=== PATIENT | female | born 1955 ===

== ENCOUNTER 2023-06-13 06:45 | Day surgery (SDC) | payer MEDICARE, OTHER, SELFPAY ==
--- NOTE | 2023-06-13 06:17 | W.ANESPRE ---
General Info Date of Service Date Performed: 06/13/23 Height: 5 ft 1.5 in Weight: 77 kg Body Mass Index (BMI): 31.5 Surgical Procedure: Operation Date: 06/13/23 08:25 Proposed Procedure Side Surgeon p Cataract Extraction with IOL Implant Right Osman Jolley MD Meds Allergies and Home Medications Allergies Allergy/AdvReac Type Severity Reaction Status Date / Time No Known Allergies Allergy Unverified 06/10/23 13:57 Home Medication Medication Instructions Recorded albuterol sulfate 90 mcg/actuation 2 inh inhalation QID PRN 06/10/23 aerosol inhaler (Proventil HFA) alprazolam 0.5 mg tablet 0.5 mg PO HS PRN 06/10/23 amoxicillin 875 mg-potassium 1 tab PO BID 06/10/23 clavulanate 125 mg tablet benzonatate 200 mg capsule 200 mg PO TID PRN 06/10/23 cholecalciferol (vitamin D3) 100 100 mcg PO DAILY 06/10/23 mcg (4,000 unit) capsule citalopram 20 mg tablet 20 mg PO DAILY 06/10/23 ezetimibe 10 mg tablet 10 mg PO DAILY 06/10/23 fluticasone propionate 50 1 spray intranasal DAILY 06/10/23 mcg/actuation nasal spray,suspension (Aller-Wilmer) lisinopril 20 1 tab PO DAILY 06/10/23 mg-hydrochlorothiazide 12.5 mg tablet ropinirole 0.25 mg tablet 0.5 mg PO HS 06/10/23 rosuvastatin 40 mg tablet 40 mg PO DAILY 06/10/23 sumatriptan 5 mg/actuation nasal 5 mg intranasal PRN 06/10/23 spray (Imitrex) trihexyphenidyl 2 mg tablet 2 mg PO TID 06/10/23 Current Visit Medications: Current Medications Generic Name Dose Route Start Last Admin Trade Name Freq PRN Reason Stop Dose Admin Acetaminophen 1,000 mg 06/13/23 06:00 Acetaminophen 500 Mg Tab PO 07/13/23 05:59 Q4H PRN PRN Balanced Salt Solution 500 ml 06/13/23 06:00 Balanced Salt Soln.-Plus 500 Ml Bag OP 07/13/23 05:59 DIRECTED EDUARDO Miscellaneous Medication 0 ml 06/13/23 06:00 Tropicam./Phenyleph. (1/2.5%) 5 Ml Btl OD 07/13/23 05:59 DIRECTED [facility] Miscellaneous Medication 0 ml 06/13/23 06:00 Prednisolone 1%, Moxifloxacin 0.5%, Bromfenac 0.09% 5ml Btl OD 07/13/23 05:59 DIRECTED [facility] Tetracaine HCl 0 ml 06/13/23 06:00 Tetracaine 0.5% 4 Ml Btl OD 07/13/23 05:59 DIRECTED [facility] PFSH Active Problems Active Problems: Problem Status Onset Code Posterior subcapsular age-related cataract, right eye H25.041 Nuclear age-related cataract, right eye H25.11 Medical History Medical History (Updated 06/12/23 @ 18:58 by Osman Jolley MD) Dystonia Tremor, neuro 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 Medical History Comments:: Per per patient DBS neurosurgery stimulator implant in right breast. Surgical History Surgical History (Updated 06/10/23 @ 13:51 by Meche Go RN) History of esophagogastroduodenoscopy (EGD) History of surgery Neurostimulator implantation Vulvar abscess I & D History of colonoscopy History of bunionectomy Tobacco Smoking/Tobacco Use Status: Former Tobacco Use Alcohol Alcohol Intake: current Alcohol intake frequency: 0-2 drinks per day Alcohol type: wine Substance Use Substance use: Current Sobriety Substance use type: does not use and marijuana Vital Signs and Lab Results Vital Signs Most Recent Vital Signs in EMR: Temp Pulse Resp BP Pulse Ox 36.6 C 72 16 127/73 96 06/13/23 07:03 06/13/23 07:03 06/13/23 07:03 06/13/23 07:03 06/13/23 07:03 Lab Results Blood Type / Crossmatch: No Data to Display Complete Blood Count: No Data to Display Complete Metabolic Panel: No Data to Display Liver Function Panel: No Data to Display Coagulation Panel: No Data to Display Cardiac Panel: No Data to Display Arterial Blood Gas: No Data to Display Venous Blood Gas: No Data to Display Pancreas Panel: No Data to Display Thyroid Panel: No Data to Display Infectious Disease: No Data to Display Blood Cultures: No Data to Display Toxicology Panel: No Data to Display Anesthesia Assessment and Plan Anesthesia History Personal History: No History of Anesthesia Complications Family History: No Family History of Anesthesia Complications Exercise Tolerance Exercise Tolerance: Metabolic Equivalents>4 Cardiac & Pulmonary Exam Cardiac Exam: Normal S1/S2 Heart Sounds Pulmonary Exam: Clear Bilateral Breath Sounds Implantable Cardiac Device Does patient have a Pacemaker or an ICD?: No Airway Exam Known Difficult Airway: No Mallampati Class: 3 Mouth Opening: Narrow (< 3cm) Thyromental Distance: Greater than 3 cm Neck Range of Motion: Full ROM Neck Circumference: Normal Teeth Condition: Normal Dentition ASA Classification ASA Score: ASA 2 Emergency Case?: No NPO Status NPO Status: NPO Clears >2 hours, Solids >8 hours Anesthesia Plan Resuscitation Status: Full Code Anesthesia Technique: MAC Anesthesia Airway Planned: Natural Airway Monitors Used: Standard Monitors Preoperative Comments:: 68 yo female for cataract removal. Would like MKO. Sig PMHX: HTN (lisinopril/HCTZ), asthma/RAD (albuterol) tremor with neurostim (trihexyphenidyl), preDM, anxiety (alprazolam), former smoker, occ EtOH/cannabis.
[2023-06-13 07:03] VITALS: BP 127/73; PULSE 72; RESP 16; TEMP 36.6; O2SAT 96
[2023-06-13] MEDS: Tropicam./Phenyleph. (1/2.5%) 5 ML BTL OD ×3 (07:22→07:35)
[2023-06-13 07:37] VITALS: BMI 31.5
[2023-06-13] MEDS: Tetracaine 0.5% 4 ML BTL OD (08:32)
[2023-06-13] MEDS: Povidone-Iodine Ophth 30 ML BTL (08:33)
[2023-06-13] MEDS: Duovisc Viscoelastic System EACH 1 EACH (08:38)
[2023-06-13] MEDS: Balanced Salt Soln.-PLUS 500 ML BAG OP (08:38)
[2023-06-13] MEDS: Phenylephrine/Lidocaine (15/10) MG/ML 1 ML VIAL (08:39)
[2023-06-13] MEDS: Lidocaine 1% Pres-Free 5 ML VIAL (08:39)
[2023-06-13 09:00] VITALS: BP 111/71; PULSE 73; RESP 16; TEMP 36.6; O2SAT 100
--- NOTE | 2023-06-13 09:01 | ROE_ITS ---
Date of service: 06/13/23 Time of Service: 09:02 Operative Note Operative Note DATE OF PROCEDURE: 06/13/23 PRE-OP DIAGNOSIS: Nuclear/posterior subcapsular cataract, right eye POST-OP DIAGNOSIS: same PROCEDURE: Cataract extraction using phacoemulsification with intraocular lens implant, right eye SURGEON: Osman Jolley ANESTHESIA TYPE: Local By Surgeon and MAC Refer to Anesthesia Record ESTIMATED BLOOD LOSS: 0 PATHOLOGY: none sent COMPLICATIONS: None Patient was transported to: same day Patient's condition: stable Implants: Ron & Ron Tecnis Eyhance [id number] Indications: Progressive visual loss due to cataract, right eye Procedure Description: CATARACT SURGERY OPERATIVE REPORT PREOPERATIVE DIAGNOSIS: 1. Nuclear/posterior subcapsular cataract, right eye POSTOPERATIVE DIAGNOSIS: Same OPERATION: 1. Cataract extraction using phacoemulsification with posterior chamber intraocular lens implant, right eye. IOL: IOL Central Processing Technician/Model: Ron & Ron Tecnis Eyhance DIB00 IOL Power: + 20.5 diopters IOL Serial Number: [id number] Optic Diameter: 6.0mm Haptic/Overall Diameter: 13.0mm PHACO INFO: Roscoe AlertEnterpriseurion Vision System with OZil and Active Fluidics Cumulative Dispersed Energy (CDE): 11.10 seconds SURGEON: Osman Jolley MD, GAVINO ANESTHESIA: Monitored Anesthesia Care (MAC), with local sub-tenon's anesthetic infiltration COMPLICATIONS: None SPECIMENS: None INDICATIONS FOR PROCEDURE: The patient is a 68-year-old lady who is undergone previously myopic LASIK, monovision, right eye distance. She has developed a significant nuclear/posterior subcapsular cataract in the right eye and desires cataract surgery and attempt to improve and maximize her vision. The option of cataract surgery was offered to the patient and she wished to proceed. See office notes for detailed information. PROCEDURE: The correct surgical eye was identified and marked as the right eye and the pupil was dilated in the preoperative area using mydriatics and cycloplegics. The dilated pupil size was 8.0 mm. Oral sedation was administered in the form of an Imprimis MKO Melt (midazolam 3mg/ketamine 25mg/ondansetron 2mg). The patient was brought to the operating room where cardiopulmonary monitoring was instituted and surgical time-out was performed, confirming the correct operative eye and IOL power. Topical anesthesia was administered and ophthalmic povidone-iodine 5% was instilled into the conjunctival fornices. The gerard-ocular area was prepped with Betadine 10% solution and draped in the usual sterile fashion for intraocular surgery, including an aperture drape. A Tegaderm transparent film dressing was cut in half and used to cover the lashes and lid margins. Care was taken to sequester the lashes and lid margins under the Tegaderm dressing. A lid speculum was placed between the lids of the operative eye and the Roscoe LuxOR Revalia operating microscope was maneuvered into position. Sammy scissors were then used to make a conjunctival buttonhole approximately 6mm posterior to the limbus in the inferonasal quadrant. Blunt dissection was carried out to expose bare sclera, and a blunt-tipped sub-tenon?s anesthesia cannula was introduced and passed posteriorly along the globe where non- preserved plain lidocaine was injected into posterior sub-Tenon?s space. A sideport knife was used to make a paracentesis port. Intraocular phenylephrine/lidocaine was injected into the anterior chamber. The anterior chamber was filled with viscoelastic. A keratome knife was used to construct a 2-plane clear corneal tunnel extending 2.0mm into clear cornea. A flap was raised on the anterior capsule and capsulorhexis forceps were used to complete a continuous curvilinear capsulorhexis of 5.5 mm. Balanced salt solution was then used to perform cortical cleaving hydrodissection and nuclear hydrodelineation until the lens could be freely rotated within the capsular bag. The lens nucleus was then disassembled and removed within the capsular bag and iris plane using phacoemulsification. Residual cortical material was removed using the I/A handpiece. The posterior capsule was carefully polished to remove as much residual lens epithelial cells as safely possible. The capsular bag was then inflated and the anterior chamber deepened with cohesive viscoelastic. The lens implant described above was inserted into the capsular bag using the Ron and Susan Simplicity pre- loaded injector. A Kuglen hook was used to dial the IOL into position. Residual viscoelastic was then removed first from posterior to the IOL, then from the anterior chamber using the I/A handpiece. The lens implant was noted to center nicely within the capsular bag. The incisions were stromally hydrated, and the anterior chamber was reformed using BSS. Then 0.5cc of moxifloxacin 1.0mg/ml were injected into the capsular bag and anterior chamber. The incisions were checked with a Weck spear and found to be secure. Several drops of ophthalmic povidone-iodine 5% were then applied to the eye followed by two drops of Imprimis combination prednisolone/moxifloxacin/nepafenac solution. The drapes were removed and a clear plastic protective eye shield was placed over the eye. The patient was then returned to Same Day Surgery in stable condition.
--- NOTE | 2023-06-13 09:01 | W.PM.DSUDISC ---
Date of service: 06/13/23 Time of Service: 09:01 Discharge Plan Disposition Patient Disposition: Home Discharge Details Attending Provider: Osman Jolley Primary Care Provider: Arely Che Home Meds and New Rx's Prescriptions: No Action lisinopril-hydrochlorothiazide 20-12.5 mg tablet 1 tab PO DAILY Patient Comments: TAKE 1 TABLET BY MOUTH EVERY DAY alprazolam 0.5 mg tablet 0.5 mg PO HS PRN Patient Comments: TAKE 1 TABLET BY MOUTH EVERY DAY NEEDED FOR TREMORS citalopram 20 mg tablet 20 mg PO DAILY Patient Comments: TAKE 1 TABLET BY MOUTH EVERY DAY ropinirole 0.25 mg tablet 0.5 mg PO HS Patient Comments: TAKE 1 TABLET BY MOUTH AT BEDTIME FOR RESTLESS LEGS ezetimibe 10 mg tablet 10 mg PO DAILY Patient Comments: TAKE 1 TABLET BY MOUTH EVERY DAY rosuvastatin 40 mg tablet 40 mg PO DAILY Patient Comments: TAKE 1 TABLET BY MOUTH EVERY DAY sumatriptan [Imitrex] 5 mg/actuation spray,non-aerosol 5 mg intranasal PRN Rx Instructions: administer into one nostril as a single dose fluticasone propionate [Aller-Wilmer] 50 mcg/actuation spray,suspension 1 spray intranasal DAILY Hold Instructions: Pt Stopped/Never Started Rx Instructions: administer into each nostril cholecalciferol (vitamin D3) 100 mcg (4,000 unit) capsule 100 mcg PO DAILY albuterol sulfate [Proventil HFA] 90 mcg/actuation HFA aerosol inhaler 2 inh inhalation QID PRN trihexyphenidyl 2 mg tablet 2 mg PO TID Rx Instructions: give with food (meal/snack) amoxicillin-pot clavulanate 875-125 mg tablet 1 tab PO BID Patient Comments: For URI, sinusitis take twice daily for 10 days benzonatate 200 mg capsule 200 mg PO TID PRN Discharge Instructions Stand Alone Forms: Post-op Topical Cataract, Gus Vizcarra (DSU) Discharge Orders Discharge Orders: Discharge Order (Routine); Ordered 06/13/23 Ordered By: Osman Jolley DS: Diagnosis Discharge Diagnosis (1) Posterior subcapsular age-related cataract, right eye: Status: Resolved (2) Nuclear age-related cataract, right eye: Status: Resolved
--- NOTE | 2023-06-13 09:15 | W.ANESPOSTOP ---
Postoperative Evaluation Date, Time and Location Date Performed: 06/13/23 Time Performed: 09:15 Patient Location: Day Surgery Unit Vital Signs Most Recent Imported Vital Signs: Most Recent Vital Signs Temp Pulse Resp BP Pulse Ox 36.6 C 73 16 111/71 100 06/13/23 09:00 06/13/23 09:00 06/13/23 09:00 06/13/23 09:00 06/13/23 09:00 Pain Score Most Recent Pain Score: Most Recent Pain Score Pain Level 0 06/13/23 09:00 Assessment Mental Status: Awake (Alert & Oriented to Patient Baseline) Airway and Respiratory Function: Patent airway with normal (patient baseline) respiratory exam Cardiovascular Function: Hemodynamically Stable Hydration Status: Adequately Hydrated Nausea & Vomiting: No Nausea or Vomiting Pain: Pt. Denies Any Pain Peripheral Nerve Block: Patient did not receive a nerve block
[2023-06-13 09:28] VITALS: BP 129/74; PULSE 76; RESP 16; TEMP 36.5; O2SAT 95
== END 2023-06-13 09:32 | disposition home or self-care (01) ==
PROVIDERS: PCP Nurse Practitioner Family; Visit Provider Ophthalmology
PROC: (CPT 66984; principal; 2023-06-13 08:15)
DX: H25.041 Posterior subcapsular polar age-related cataract, right eye (principal); H25.11 Age-related nuclear cataract, right eye
CPT/HCPCS: 66984; 00123; V2632

== ENCOUNTER 2023-06-27 06:52 | Day surgery (SDC) | payer MEDICARE, OTHER, SELFPAY ==
[2023-06-27] MEDS: Tropicam./Phenyleph. (1/2.5%) 5 ML BTL OS ×3 (07:12→07:27)
[2023-06-27 07:22] VITALS: BP 124/67; PULSE 74; RESP 16; TEMP 36.4; O2SAT 97
[2023-06-27] MEDS: Midazolam/Ketamine/Ondansetron (3/25/2MG) 1 TAB 1 EACH SL (07:30)
[2023-06-27 07:34] VITALS: BMI 31.7
--- NOTE | 2023-06-27 07:34 | W.ANESPRE ---
General Info Date of Service Date Performed: 06/27/23 Height: 5 ft 1.5 in Weight: 77.4 kg Body Mass Index (BMI): 31.7 Surgical Procedure: Operation Date: 06/27/23 08:25 Proposed Procedure Side Surgeon p Cataract Extraction with IOL Implant Left Osman Jolley MD Meds Allergies and Home Medications Allergies Allergy/AdvReac Type Severity Reaction Status Date / Time No Known Allergies Allergy Unverified 06/27/23 07:04 Home Medication Medication Instructions Recorded albuterol sulfate 90 mcg/actuation 2 inh inhalation QID PRN 06/10/23 aerosol inhaler (Proventil HFA) alprazolam 0.5 mg tablet 0.5 mg PO HS PRN 06/10/23 benzonatate 200 mg capsule 200 mg PO TID PRN 06/10/23 cholecalciferol (vitamin D3) 100 100 mcg PO DAILY 06/10/23 mcg (4,000 unit) capsule citalopram 20 mg tablet 20 mg PO DAILY 06/10/23 ezetimibe 10 mg tablet 10 mg PO DAILY 06/10/23 fluticasone propionate 50 1 spray intranasal DAILY 06/10/23 mcg/actuation nasal spray,suspension (Aller-Wilmer) lisinopril 20 1 tab PO DAILY 06/10/23 mg-hydrochlorothiazide 12.5 mg tablet ropinirole 0.25 mg tablet 0.5 mg PO HS 06/10/23 rosuvastatin 40 mg tablet 40 mg PO DAILY 06/10/23 sumatriptan 5 mg/actuation nasal 5 mg intranasal PRN 06/10/23 spray (Imitrex) trihexyphenidyl 2 mg tablet 2 mg PO TID 06/10/23 Current Visit Medications: Current Medications Generic Name Dose Route Start Last Admin Trade Name Freq PRN Reason Stop Dose Admin Acetaminophen 1,000 mg 06/27/23 06:00 Acetaminophen 500 Mg Tab PO 07/27/23 05:59 Q4H PRN PRN Balanced Salt Solution 500 ml 06/27/23 06:00 Balanced Salt Soln.-Plus 500 Ml Bag OP 07/27/23 05:59 DIRECTED EDUARDO Miscellaneous Medication 0 ml 06/27/23 06:00 06/27/23 07:27 Tropicam./Phenyleph. (1/2.5%) 5 Ml Btl OS 07/27/23 05:59 1 drp DIRECTED EDUARDO Administration Miscellaneous Medication 0 ml 06/27/23 06:00 Prednisolone 1%, Moxifloxacin 0.5%, Bromfenac 0.09% 5ml Btl OS 07/27/23 05:59 DIRECTED EDUARDO Tetracaine HCl 0 ml 06/27/23 06:00 Tetracaine 0.5% 4 Ml Btl OS 07/27/23 05:59 DIRECTED EDUARDO PFSH Active Problems Active Problems: Problem Status Onset Code Posterior subcapsular age-related cataract of left eye H25.042 Nuclear age-related cataract, left eye H25.12 Posterior subcapsular age-related cataract, right eye H25.041 Nuclear age-related cataract, right eye H25.11 Medical History Medical History Dystonia Tremor, neuro 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 Medical History Comments:: Per per patient DBS neurosurgery stimulator implant in right breast. Surgical History Surgical History History of esophagogastroduodenoscopy (EGD) History of surgery Neurostimulator implantation Vulvar abscess I & D History of colonoscopy History of bunionectomy Tobacco Smoking/Tobacco Use Status: Former Tobacco Use Alcohol Alcohol Intake: current Alcohol intake frequency: 0-2 drinks per day Alcohol type: wine Substance Use Substance use: Current Sobriety Substance use type: does not use and marijuana Vital Signs and Lab Results Vital Signs Most Recent Vital Signs in EMR: Most Recent Vital Signs Temp Pulse Resp BP Pulse Ox 36.4 C L 74 16 124/67 97 06/27/23 07:22 06/27/23 07:22 06/27/23 07:22 06/27/23 07:22 06/27/23 07:22 Lab Results Blood Type / Crossmatch: No Data to Display Complete Blood Count: No Data to Display Complete Metabolic Panel: No Data to Display Liver Function Panel: No Data to Display Coagulation Panel: No Data to Display Cardiac Panel: No Data to Display Arterial Blood Gas: No Data to Display Venous Blood Gas: No Data to Display Pancreas Panel: No Data to Display Thyroid Panel: No Data to Display Infectious Disease: No Data to Display Blood Cultures: No Data to Display Toxicology Panel: No Data to Display Anesthesia Assessment and Plan Anesthesia History Personal History: No History of Anesthesia Complications Family History: No Family History of Anesthesia Complications Exercise Tolerance Exercise Tolerance: Metabolic Equivalents>4 Pertinent Negatives Pertinent Negatives: No Symptoms of GERD Cardiac & Pulmonary Exam Cardiac Exam: Normal S1/S2 Heart Sounds Pulmonary Exam: Clear Bilateral Breath Sounds Implantable Cardiac Device Does patient have a Pacemaker or an ICD?: No Airway Exam Known Difficult Airway: No Mallampati Class: 3 Mouth Opening: Narrow (< 3cm) Thyromental Distance: Greater than 3 cm Neck Range of Motion: Full ROM Neck Circumference: Normal Teeth Condition: Normal Dentition ASA Classification ASA Score: ASA 3 Emergency Case?: No NPO Status NPO Status: NPO Clears >2 hours, Solids >8 hours Anesthesia Plan Resuscitation Status: Full Code Anesthesia Technique: MAC Anesthesia Airway Planned: Natural Airway Monitors Used: Standard Monitors
[2023-06-27] MEDS: Povidone-Iodine Ophth 30 ML BTL (08:13)
[2023-06-27] MEDS: Tetracaine 0.5% 4 ML BTL OS (08:13)
[2023-06-27] MEDS: Duovisc Viscoelastic System EACH 1 EACH (08:19)
[2023-06-27] MEDS: Balanced Salt Soln.-PLUS 500 ML BAG OP (08:20)
[2023-06-27] MEDS: Lidocaine 1% Pres-Free 5 ML VIAL (08:20)
--- NOTE | 2023-06-27 08:38 | ROE_ITS ---
Date of service: 06/27/23 Time of Service: 08:38 Operative Note Operative Note DATE OF PROCEDURE: 06/27/23 PRE-OP DIAGNOSIS: Nuclear/posterior subcapsular cataract, left eye Status post myopic LASIK, left eye POST-OP DIAGNOSIS: same PROCEDURE: Cataract extraction using phacoemulsification with intraocular lens implant, left eye SURGEON: Osman Jolley ANESTHESIA TYPE: Local By Surgeon and MAC Refer to Anesthesia Record PATHOLOGY: none sent COMPLICATIONS: None Patient was transported to: same day Patient's condition: stable Implants: Ron and Ron Tecnis Eyhance DIB00 Indications: Progressive decreased vision due to cataract, left eye Procedure Description: CATARACT SURGERY OPERATIVE REPORT PREOPERATIVE DIAGNOSIS: 1. Nuclear/posterior subcapsular cataract, left eye 2. Status post myopic LASIK, left eye POSTOPERATIVE DIAGNOSIS: Same OPERATION: 1. Cataract extraction using phacoemulsification with posterior chamber intraocular lens implant, left eye. IOL: IOL Supervisor Toy Assembly/Model: Ron & Ron Tecnis Eyhance DIB00 IOL Power: + 19.5 diopters IOL Serial Number: [id number] Optic Diameter: 6.0 mm Haptic/Overall Diameter: 13.0 mm PHACO INFO: Roscoe Spicy Horse Gamesurion Vision System with OZil and Active Fluidics Cumulative Dispersed Energy (CDE): 8.18 seconds SURGEON: Osman Jolley MD, GAVINO ANESTHESIA: Monitored A [facility] (MAC), with local sub-tenon's anesthetic infiltration COMPLICATIONS: None SPECIMENS: None INDICATIONS FOR PROCEDURE: The patient is a 68-year-old lady was previously undergone myopic LASIK with monovision, left eye near. She has developed symptomatic bilateral nuclear /posterior subcapsular cataract. She has already undergone cataract surgery in the right eye, and is doing well postoperatively. She now presents for cataract surgery in the left eye. She desires correction for best distance visual acuity in both eyes. See office notes for detailed information. PROCEDURE: The correct surgical eye was identified and marked as the left eye and the pupil was dilated in the preoperative area using mydriatics and cycloplegics. The dilated pupil size was 7.0 mm. Oral sedation was administered in the form of an Imprimis MKO Melt (midazolam 3mg/ketamine 25mg/ondansetron 2mg).. The patient was brought to the operating room where cardiopulmonary monitoring was instituted and surgical time-out was performed, confirming the correct operative eye and IOL power. Topical anesthesia was administered and ophthalmic povidone-iodine 5% was instilled into the conjunctival fornices. The gerard-ocular area was prepped with Betadine 10% solution and draped in the usual sterile fashion for intraocular surgery, including an aperture drape. A Tegaderm transparent film dressing was cut in half and used to cover the lashes and lid margins. Care was taken to sequester the lashes and lid margins under the Tegaderm dressing. A lid speculum was placed between the lids of the operative eye and the Roscoe LuxOR Revalia operating microscope was maneuvered into position. Sammy scissors were then used to make a conjunctival buttonhole approximately 6mm posterior to the limbus in the inferonasal quadrant. Blunt dissection was carried out to expose bare sclera, and a blunt-tipped sub-tenon?s anesthesia cannula was introduced and passed posteriorly along the globe where non- preserved plain lidocaine was injected into posterior sub-Tenon?s space. A sideport knife was used to make a paracentesis port. Intraocular phenylephrine/lidocaine was injected into the anterior chamber.. The anterior chamber was filled with viscoelastic. A keratome knife was used to construct a 2-plane near-clear corneal tunnel extending 2.0mm into clear cornea. A flap was raised on the anterior capsule and capsulorhexis forceps were used to complete a continuous curvilinear capsulorhexis of 5.5 mm. Balanced salt solution was then used to perform cortical cleaving hydrodissection and nuclear hydrodelineation until the lens could be freely rotated within the capsular bag. The lens nucleus was then disassembled and removed within the capsular bag and iris plane using phacoemulsification. Residual cortical material was removed using the irrigation/aspiration handpiece. The posterior capsule was carefully polished to remove as much residual lens epithelial cells as safely possible. The capsular bag was then inflated and the anterior chamber deepened with viscoelastic. The lens implant described above was inserted into the capsular bag using the Ron and Ron Simplicity pre-loaded injector. A Kuglen hook was used to dial the IOL into position. Residual viscoelastic was then removed first from posterior to the IOL, then from the anterior chamber using the I/A handpiece. The lens implant was noted to center nicely within the capsular bag. The incisions were stromally hydrated, and the anterior chamber was reformed using BSS. Then 0.5cc of moxifloxacin 1.0mg/ml were injected into the capsular bag and anterior chamber. The in cisions were checked with a Weck spear and found to be secure. Several drops of ophthalmic povidone-iodine 5% were then applied to the eye followed by two drops of Imprimis combination prednisolone/moxifloxacin/nepafenac solution. The drapes were removed and a clear plastic protective eye shield was placed over the eye. The patient was then returned to Same Day Surgery in stable condition.
--- NOTE | 2023-06-27 08:38 | W.PM.DSUDISC ---
Date of service: 06/27/23 Time of Service: 08:38 Discharge Plan Disposition Patient Disposition: Home Discharge Details Attending Provider: Osman Jolley Primary Care Provider: Arely Che Home Meds and New Rx's Prescriptions: No Action lisinopril-hydrochlorothiazide 20-12.5 mg tablet 1 tab PO DAILY Patient Comments: TAKE 1 TABLET BY MOUTH EVERY DAY alprazolam 0.5 mg tablet 0.5 mg PO HS PRN Patient Comments: TAKE 1 TABLET BY MOUTH EVERY DAY NEEDED FOR TREMORS citalopram 20 mg tablet 20 mg PO DAILY Patient Comments: TAKE 1 TABLET BY MOUTH EVERY DAY ropinirole 0.25 mg tablet 0.5 mg PO HS Patient Comments: TAKE 1 TABLET BY MOUTH AT BEDTIME FOR RESTLESS LEGS ezetimibe 10 mg tablet 10 mg PO DAILY Patient Comments: TAKE 1 TABLET BY MOUTH EVERY DAY rosuvastatin 40 mg tablet 40 mg PO DAILY Patient Comments: TAKE 1 TABLET BY MOUTH EVERY DAY sumatriptan [Imitrex] 5 mg/actuation spray,non-aerosol 5 mg intranasal PRN Rx Instructions: administer into one nostril as a single dose fluticasone propionate [Aller-Wilmer] 50 mcg/actuation spray,suspension 1 spray intranasal DAILY Hold Instructions: Pt Stopped/Never Started Rx Instructions: administer into each nostril cholecalciferol (vitamin D3) 100 mcg (4,000 unit) capsule 100 mcg PO DAILY albuterol sulfate [Proventil HFA] 90 mcg/actuation HFA aerosol inhaler 2 inh inhalation QID PRN trihexyphenidyl 2 mg tablet 2 mg PO TID Rx Instructions: give with food (meal/snack) benzonatate 200 mg capsule 200 mg PO TID PRN Discharge Instructions Stand Alone Forms: Post-op Topical Cataract, [facility]izcar[facility] ([facility]) Discharge Orders Discharge Orders: Discharge Order (Routine); Ordered 06/27/23 Ordered By: Osman Jolley DS: Diagnosis Discharge Diagnosis (1) Posterior subcapsular age-related cataract of left eye: Status: Resolved (2) Nuclear age-related cataract, left eye: Status: Resolved
[2023-06-27 08:42] VITALS: BP 110/76; PULSE 75; RESP 16; TEMP 36.5; O2SAT 97
--- NOTE | 2023-06-27 08:48 | W.ANESPOSTOP ---
Postoperative Evaluation Date, Time and Location Date Performed: 06/27/23 Time Performed: 08:48 Patient Location: [facility] Unit Vital Signs Most Recent Imported Vital Signs: Most Recent Vital Signs Temp Pulse Resp BP Pulse Ox 36.5 C 75 16 110/76 97 06/27/23 08:42 06/27/23 08:42 06/27/23 08:42 06/27/23 08:42 06/27/23 08:42 Pain Score Most Recent Pain Score: Most Recent Pain Score Pain Level 0 06/27/23 08:42 Assessment Mental Status: Awake (Alert & Oriented to Patient Baseline) Airway and Respiratory Function: Patent airway with normal (patient baseline) respiratory exam Cardiovascular Function: Hemodynamically Stable Hydration Status: Adequately Hydrated Nausea & Vomiting: No Nausea or Vomiting Pain: Pt. Denies Any Pain Peripheral Nerve Block: Patient did not receive a nerve block
[2023-06-27 09:04] VITALS: BP 118/96; PULSE 75; RESP 16; TEMP 36.6; O2SAT 95
== END 2023-06-27 09:05 | disposition home or self-care (01) ==
LOC: SUR 06:53
PROVIDERS: PCP Nurse Practitioner Family; Visit Provider Ophthalmology
PROC: (CPT 66984; principal; 2023-06-27 08:15)
DX: H25.042 Posterior subcapsular polar age-related cataract, left eye (principal); H25.12 Age-related nuclear cataract, left eye; Z98.41 Cataract extraction status, right eye
CPT/HCPCS: 66984; 00123; V2632